=== PATIENT | male | born 1950 | race Caucasian/White ===

== ENCOUNTER 2018-04-11 12:46 | Emergency (ER) | payer OTHER ==
[~2018-04-11] VITALS: Ht 167.6 cm; Wt 95.3 kg
[2018-04-11 13:29] LABS: HEMATOCRIT 44.6 % (38.0-50.0); HEMOGLOBIN 15.7 G/DL (12.5-16.6); MCH 29.6 PG (29.0-34.0); MCHC 35.2 G/DL (30.0-36.0); MCV 84.2 FL (86-99); PLATELET COUNT 214 K/uL (156-360); RBC DIS.WIDTH-SD 36.7 % (39-53); WHITE BLOOD COUNT 10.4 K/uL (4.1-10.2)
[2018-04-11 13:37] LABS: CHLORIDE 106 mEq/L (99-109); POTASSIUM 3.5 mEq/L (3.7-5.4); SODIUM 139 mEq/L (136-147)
[2018-04-11 13:39] LABS: GLUCOSE 241 mg/dL (70-99)
[2018-04-11 13:43] LABS: CREATININE 1.7 mg/dL (0.6-1.3); GFR ESTIMATE (CALCULATED) 43 mL/min/ (58.99-99999)
[2018-04-11 13:44] LABS: UREA NITROGEN (BUN) 11 mg/dL (9-23)
[2018-04-11 13:49] LABS: TROP-I INTERPRETATION NEGATIVE; TROPONIN-I < 0.01 ng/mL (0.0-0.30)
[2018-04-11] MEDS ORDERED: PREDNISONE50 MG PO (15:40)
[2018-04-11 15:52] VITALS: BP 152/88
== END 2018-04-11 15:53 | disposition home or self-care (01) ==
LOC: EME 12:46
PROVIDERS: Emergency Medicine
DX: J45.909 Unspecified asthma, uncomplicated (principal); R94.31 Abnormal electrocardiogram [ECG] [EKG]; Z98.84 Bariatric surgery status; Z87.09 Personal history of other diseases of the respiratory system; Z95.1 Presence of aortocoronary bypass graft
CPT/HCPCS: 71046; 80048; 84484; 85027; 93005; 94640; 99281; 99284; J7512